=== PATIENT | male | born 1945 | race Caucasian/White ===

== ENCOUNTER 2020-01-25 17:34 | Emergency (ER) | payer MEDICARE, OTHER ==
[~2020-01-25] VITALS: Ht 185.4 cm; Wt 154.0 kg
[2020-01-25] MEDS ORDERED: NORVASC5 M1 PO (17:54)
[2020-01-25] MEDS ORDERED: CYMBALTA20 MG PO (17:54)
[2020-01-25] MEDS ORDERED: TENORMIN100 MG PO (17:54)
[2020-01-25] MEDS ORDERED: LORATADINE10 M1 PO (17:55)
[2020-01-25] MEDS ORDERED: COZAAR25 MG PO (17:55)
[2020-01-25 18:26] LABS: HEMATOCRIT 42.2 % (39.0-50.0); HEMOGLOBIN 12.8 g/dl (14.0-18.0); IMMATURE GRANULOCYTES 0.5 % (0.0-5.0); MEAN CELL VOLUME 90.4 fL CALC (80.0-100.0); MEAN CORPUSCULAR HGB 27.4 pG CALC (26.0-32.0); MEAN CORPUSCULAR HGB CONC 30.3 g/dL CAL (32.0-36.0); NEUT# 4.49 thou/uL (1.82-7.42); RED BLOOD COUNT 4.67 mill/uL (4.70-6.10); RED CELL DISTRI WIDTH 14.9 % (11.5-15.5)
[2020-01-25 18:45] LABS: ALBUMIN 3.4 g/dL (3.2-5.0); ALKALINE PHOSPHATASE 81 u/l (38-126); ANION GAP 10 (6-22 (CALC)); BUN 16 mg/dL (8-23); BUN/CREATININE RATIO 15 (12-20 (CALC)); CARBON DIOXIDE 29 mmol/l (22-30); CHLORIDE 101 mmol/l (95-108); GFR > 60 ML/MIN (>=60 (CALC)); GFR FOR AFR.AMER. > 60 ML/MIN (>=60 (CALC)); POTASSIUM 4.1 mmol/l (3.5-5.1); SGOT/AST 18 u/l (19-48); SODIUM 136 mmol/l (137-146); TOTAL PROTEIN 6.9 g/dL (6.3-8.2)
[2020-01-25 18:48] LABS: BILIRUBIN, TOTAL 0.4 mg/dL (0.0-1.4)
[2020-01-25 19:45] VITALS: BP 155/68
== END 2020-01-25 19:45 | disposition left against medical advice (07) ==
LOC: ED 17:34 → ED-I 18:35 → ED 19:45
PROVIDERS: Family Medicine
DX: L03.115 Cellulitis of right lower limb (principal); L97.219 Non-pressure chronic ulcer of right calf with unspecified severity; I10 Essential (primary) hypertension; Z91.19 Patient's noncompliance with other medical treatment and regimen; L97.212 Non-pressure chronic ulcer of right calf with fat layer exposed; I87.311 Chronic venous hypertension (idiopathic) with ulcer of right lower extremity; A49.9 Bacterial infection, unspecified; E66.9 Obesity, unspecified; A41.50 Gram-negative sepsis, unspecified

== ENCOUNTER 2020-04-05 08:51 | Emergency (ER) | payer MEDICARE, OTHER ==
[~2020-04-05] VITALS: Ht 188 cm; Wt 156.0 kg
[~2020-04-05 08:51] MED LIST: COZAAR25 MG PO; CYMBALTA20 MG PO; LORATADINE10 M1 PO; NORVASC5 M1 PO; TENORMIN100 MG PO
[2020-04-05] MEDS ORDERED: PROBIOTI2 PO (09:08)
[2020-04-05] MEDS ORDERED: BACTRIM DS1 TAB PO ×2 (09:08→10:50)
[2020-04-05] MEDS ORDERED: HYDROCHLOROTH12.5 MG PO (09:08)
[2020-04-05] MEDS ORDERED: CYMBALTA20 MG PO (09:09)
[2020-04-05] MEDS ORDERED: COZAAR50 MG PO (09:10)
[2020-04-05 10:09] LABS: HEMATOCRIT 36.5 % (39.0-50.0); HEMOGLOBIN 11.7 g/dl (14.0-18.0); IMMATURE GRANULOCYTES 0.8 % (0.0-5.0); MEAN CELL VOLUME 86.5 fL CALC (80.0-100.0); MEAN CORPUSCULAR HGB 27.7 pG CALC (26.0-32.0); MEAN CORPUSCULAR HGB CONC 32.1 g/dL CAL (32.0-36.0); NEUT# 14.58 thou/uL (1.82-7.42); RED BLOOD COUNT 4.22 mill/uL (4.70-6.10); RED CELL DISTRI WIDTH 16.2 % (11.5-15.5)
[2020-04-05 10:47] LABS: ANION GAP 11 (6-22 (CALC)); BUN 18 mg/dL (8-23); BUN/CREATININE RATIO 15 (12-20 (CALC)); CARBON DIOXIDE 27 mmol/l (22-30); CHLORIDE 98 mmol/l (95-108); CREATININE 1.2 mg/dL (0.7-1.3); GFR 59 ML/MIN (>=60 (CALC)); GFR FOR AFR.AMER. > 60 ML/MIN (>=60 (CALC)); POTASSIUM 3.7 mmol/l (3.5-5.1); SODIUM 132 mmol/l (137-146)
[2020-04-05] MEDS ORDERED: OMNI-PAC300 MG PO (10:50)
[2020-04-05 10:57] VITALS: BP 108/55
== END 2020-04-05 11:09 | disposition left against medical advice (07) ==
LOC: ED 08:51
PROVIDERS: Family Medicine
DX: L03.116 Cellulitis of left lower limb (principal); I10 Essential (primary) hypertension; Z86.718 Personal history of other venous thrombosis and embolism; Z95.828 Presence of other vascular implants and grafts; Z91.19 Patient's noncompliance with other medical treatment and regimen

== ENCOUNTER 2020-04-10 14:22 | Inpatient (IN) | payer MEDICARE, OTHER ==
[~2020-04-10] VITALS: Ht 188 cm; Wt 177.4 kg
[~2020-04-10 14:22] MED LIST changes: +BACTRIM DS1 TAB PO; +COZAAR50 MG PO; +HYDROCHLOROTH12.5 MG PO; +OMNI-PAC300 MG PO; +PROBIOTI2 PO
--- NOTE | 2020-04-10 14:43 | NUR ---
PT TO ER ROOM 8 VIA MOTORIZED SCOOTER WITH . BEDSIDE TRAIGE COMPLETED.
--- NOTE | 2020-04-10 15:15 | NUR ---
PT REPORTS BEING SENT OVER FROM WOUND CARE IN [place] TO LEFT LEG CELLULITIS THAT HAS NOT IMPROVED SINCE BEING PLACED ON ABX. IV ACCESS INITATED AND 1ST SET OF BLOOD CX DRAWN. PLAN OF CARE DISCUSSED. VERBALIZED UNDERSTANDING. PT REFUSED TO LAY IN STRETCHER REPORTS BEING MORE COMFORTABLE BEING IN HIS PERSONAL MOBILIZED WC.
[2020-04-10 15:53] LABS: HEMOGLOBIN 13.4 g/dl (14.0-18.0); IMMATURE GRANULOCYTES 3.9 % (0.0-5.0); MEAN CELL VOLUME 87.5 fL CALC (80.0-100.0); MEAN CORPUSCULAR HGB 27.4 pG CALC (26.0-32.0); MEAN CORPUSCULAR HGB CONC 31.3 g/dL CAL (32.0-36.0); NEUT# 8.05 thou/uL (1.82-7.42); RED BLOOD COUNT 4.89 mill/uL (4.70-6.10); RED CELL DISTRI WIDTH 16.5 % (11.5-15.5)
[2020-04-10 15:55] LABS: HEMATOCRIT 42.8 % (39.0-50.0)
[2020-04-10] MEDS ORDERED: TYLENOL325 M2 PO (16:05)
[2020-04-10 16:07] LABS: ALBUMIN 3.6 g/dL (3.2-5.0); ALKALINE PHOSPHATASE 136 u/l (38-126); ANION GAP 13 (6-22 (CALC)); BILIRUBIN, TOTAL 0.5 mg/dL (0.0-1.4); BUN 15 mg/dL (8-23); BUN/CREATININE RATIO 12 (12-20 (CALC)); CARBON DIOXIDE 25 mmol/l (22-30); CHLORIDE 101 mmol/l (95-108); CREATININE 1.2 mg/dL (0.7-1.3); GFR 59 ML/MIN (>=60 (CALC)); GFR FOR AFR.AMER. > 60 ML/MIN (>=60 (CALC)); POTASSIUM 3.8 mmol/l (3.5-5.1); SGOT/AST 41 u/l (19-48); SODIUM 135 mmol/l (137-146); TOTAL PROTEIN 8.5 g/dL (6.3-8.2)
--- NOTE | 2020-04-10 16:21 | NUR ---
PT RETURN FROM RADILOGY AND INFORED OF WAIT TIME FOR RESULTS. VERBALIZED UNDERSTANDING. CALL LIGHT GIVEN.
--- NOTE | 2020-04-10 16:45 | NUR ---
IV VANCOMYCIN INTIATED. INFUSING WITHOUT DIFFICLTY. WAIT TIME DISCUSSED WITH PT. VEARBLIZED UNDERSTANDING. DENIES ANY NEEDS. CALL LIGHT WITHIN REACH
--- NOTE | 2020-04-10 17:40 | NUR ---
PT SITTING IN MOBILIZED CHAIR ON PHONE. IV VANCO INFUSING WITOUT DIFFICULTY. VERBALIZES NO NEEDS AT THIS TIME. CALL LIGHT WITHIN REACH.
--- NOTE | 2020-04-10 18:34 | NUR ---
REPORT GIVEN TO BILL DAVENPORT
--- NOTE | 2020-04-10 18:40 | NUR ---
Admission Note Report Given to: BILL DAVENPORT Transported by: X Wheelchair Stretcher Transported with: X Nurse Transporter X Patent IV O2 Watershed Engineer Location: ICU X MS2 PT TO ROOM # 273
[2020-04-10 18:49] VITALS: BP 135/66
--- NOTE | 2020-04-10 18:49 | NUR ---
PT ARRIVED TO THE FLOOR VIA GYPSY CHAIR. PT WISHES TO REMAIN IN GYPSY CHAIR AT THIS TIME. VS OBTAINED. PT ORIETNED TO ROOM AND CALL YAO SYSTEM. SAFETY PRECAUTIONS IN PLACE. WILL CONTINUR TO MONITOR.
--- NOTE | 2020-04-10 20:03 | NUR ---
PHYSICAL ASSESMENT COMPLETE. PT CURRENTLY DENIES PAIN OR DISCOMFORT. SCHEDULED MEDICATIONS AND PRN MEDICATION ADMINISTERED, SEE E-MAR. PT DENIES ANY NEEDS AT THIS TIME. PLAN OF CARE REVIEWED, PT DENIES QUESTIONS, VERBALIZES UNDERSTANDING. ITEMS WITHIN REACH, PT PLACED IN LAZY BOY CHAIR PER HIS REQUEST. CALL YAO WITHIN REACH. AGREES TO CALL PRN.
--- NOTE | 2020-04-11 00:01 | NUR ---
PT LAYING IN RECLINER CHAIR WITH EYES CLOSED, APPEARS TO BE SLEEPING, APPEARS COMFORTABLE AND IN NO DISTRESS. RESPIRATIONS REGULAR AND UNLABORED. ITEMS REMAIN WITHIN REACH, CALL YAO REMAINS WITHIN REACH. BED REMAINS LOCKED AND IN LOW POSITION WITH BEDRAILS UP X2. WILL CONTINUE TO MONITOR.
[2020-04-11 04:00] VITALS: BP 124/73
--- NOTE | 2020-04-11 04:16 | NUR ---
PT RESTING IN BED, NO SIGNS OF DISTRESS NOTED, RESP EVEN AND UNLABORED. PT VOICES NO NEEDS OR COMPLAINTS AT THIS TIME. CALL LIGHT IN REACH, CONTINUE TO MONITOR.
--- NOTE | 2020-04-11 04:20 | NUR ---
PT RESTING IN RECLINER, NO SIGNS OF DISTRESS NOTED, RESP EVEN AND UNLABORED. PT VOICES NO NEEDS OR COMPLAINTS AT THIS TIME. CALL LIGHT IN REACH,CONTINUE TO MONITOR.
[2020-04-11 05:57] LABS: HEMATOCRIT 40.3 % (39.0-50.0); HEMOGLOBIN 12.7 g/dl (14.0-18.0); IMMATURE GRANULOCYTES 3.6 % (0.0-5.0); MEAN CELL VOLUME 87.4 fL CALC (80.0-100.0); MEAN CORPUSCULAR HGB 27.5 pG CALC (26.0-32.0); MEAN CORPUSCULAR HGB CONC 31.5 g/dL CAL (32.0-36.0); NEUT# 7.23 thou/uL (1.82-7.42); RED BLOOD COUNT 4.61 mill/uL (4.70-6.10); RED CELL DISTRI WIDTH 16.7 % (11.5-15.5)
[2020-04-11 06:21] LABS: ANION GAP 15 (6-22 (CALC)); BUN 16 mg/dL (8-23); BUN/CREATININE RATIO 14 (12-20 (CALC)); CARBON DIOXIDE 25 mmol/l (22-30); CHLORIDE 102 mmol/l (95-108); CREATININE 1.1 mg/dL (0.7-1.3); GFR > 60 ML/MIN (>=60 (CALC)); GFR FOR AFR.AMER. > 60 ML/MIN (>=60 (CALC)); POTASSIUM 4.4 mmol/l (3.5-5.1); SODIUM 136 mmol/l (137-146)
[2020-04-11 07:35] VITALS: BP 125/73
--- NOTE | 2020-04-11 07:35 | NUR ---
ASSESSMENT IS COMPLTED: IV SITE IS FREE FRM REDNESS OR EDEMA. HR IS REG,PULSES ARE STRONG ON RADIAL, STRONG ON R AND WEAK ON LEFT, ABD IS SOFT WITH ACTIVE BS, BREATH SOUNDS ARE CLEAR, BILATERALLY, HAS +3 EDEMA NOTD ON LEFT LEG. WITH SOME WEEPING NOTED.
--- NOTE | 2020-04-11 10:01 | NUR ---
SPOKE WITH PT ABOUT HOME MEDICATION WILL HAVE SOME ONE BRING IN
--- NOTE | 2020-04-11 12:00 | NUR ---
PTI S RELAXING IN BED WITH NO DISTRESS NOTED. IV SITE IS FREE FROM REDNESS OR EDEMA. CONTINUE TO OSBERVE AND MONITOR.
[2020-04-11 15:24] VITALS: BP 135/68
--- NOTE | 2020-04-11 16:00 | NUR ---
PT REMAINS LAYING IN THE BED. STATED" THE RECLYNER IS NOT COMFORTABLE" IV SITE IS FREE FROM REDNESS OR EDEMA . CONTINUE TO OSBERVE AND MONITOR.
[2020-04-11 19:00] VITALS: BP 130/71
--- NOTE | 2020-04-11 20:20 | NUR ---
PT RESTING IN BED, NO SIGNS OF DISTRESS NOTED, RESP EVEN AND UNLABORED. PT ALERT AND ORIENTED X3, POWER WHEELCHAIR AT BEDSIDE, NOTED +4 PITTING EDEMA TO BLE NOTED RLE DRESSING INTACT, LLE OPEN REDDENED, SWOLLEN, HOT TO TOUCH, NOTED SCALING/SCABS TO L INNER THIGH. DISCUSSED POC, ASSESSMENT COMPLETED, CALL LIGHT IN REACH,CONTINUE TO MONITOR.
--- NOTE | 2020-04-12 | NUR ---
PT RESTING IN BED, IV ANTIBITIC INFUSING, PT VOICES NO NEEDS OR COMPLAINTS AT THIS TIME, CALL LIGHT IN REACH,CONTINUE TO MONITOR.
[2020-04-12 04:00] VITALS: BP 131/68
--- NOTE | 2020-04-12 04:00 | NUR ---
PT WATCHING TV, NO SIGNS OF DISTRESS NOTED, RESP EVEN AND UNLABORED. CALL LIGHT IN REACH,CONTINUE TO MONITOR.
--- NOTE | 2020-04-12 05:29 | NUR ---
PT RESTING IN BED C/O PAIN , MEDICATED WITH TYLENOL. RESP EVEN AND UNLABORED. CALL LIGHT IN REACH,CONTINUE TO MONITOR.
[2020-04-12 05:37] LABS: HEMATOCRIT 35.8 % (39.0-50.0); MEAN CELL VOLUME 87.5 fL CALC (80.0-100.0); MEAN CORPUSCULAR HGB 26.9 pG CALC (26.0-32.0); MEAN CORPUSCULAR HGB CONC 30.7 g/dL CAL (32.0-36.0); RED BLOOD COUNT 4.09 mill/uL (4.70-6.10); RED CELL DISTRI WIDTH 16.5 % (11.5-15.5)
[2020-04-12 06:08] LABS: ANION GAP 9 (6-22 (CALC)); BUN 14 mg/dL (8-23); BUN/CREATININE RATIO 13 (12-20 (CALC)); CARBON DIOXIDE 28 mmol/l (22-30); CHLORIDE 104 mmol/l (95-108); CREATININE 1.1 mg/dL (0.7-1.3); GFR > 60 ML/MIN (>=60 (CALC)); GFR FOR AFR.AMER. > 60 ML/MIN (>=60 (CALC)); MAGNESIUM 2.1 mg/dL (1.6-2.3); POTASSIUM 4.3 mmol/l (3.5-5.1); SODIUM 137 mmol/l (137-146)
[2020-04-12 07:20] VITALS: BP 135/62
--- NOTE | 2020-04-12 07:20 | NUR ---
PT SITTING IN BED. A&O X3. NO DISTRESS NOTED. DRESSING TO RLE CDI. REDNESS AND WARMTH FELT TO LEFT EXTREMITY, NO EXUDATE NOTED AT THIS TIME. PITTING EDEMA TO BLE. 400 CC OF CLEAR YELLOW URINE NOTED UPON EMPTYING URINAL. PT DENIES ANY PAIN BUT STATES HE GETS "DISCOMFORT" FROM TIME TO TIME. NO OTHER NEEDS AT THIS TIME. ASSESSMENT COMPLETED. DISCUSSED POC. CALL LIGHT IN REACH. CONTINUE TO MONITOR.
--- NOTE | 2020-04-12 11:53 | NUR ---
PT SITTING IN BED. NO NEEDS AT THIS TIME. CALL LIGHT IN REACH. CONTINUE TO MONITOR.
--- NOTE | 2020-04-12 14:54 | NUR ---
DR ANDINO CONSULT IN PROGRESS
[2020-04-12 15:23] VITALS: BP 122/69
--- NOTE | 2020-04-12 18:06 | NUR ---
CLEOCIN AND VANCOMYCIN INITIATED, PER EMAR AND PHARMACY NOTE Y SITE COMPATIBLE WITH EACH OTHER. FIRST TIME DOSE EDUCATION GIVEN, PT INSTRUCTED TO CALL IF S/S OF A REACTION. PT VERABLIZED UNDERSTANDING. NO OTHER NEEDS AT THIS TIME. CALL LIGHT IN REACH. CONTINUE TO MONITOR.
[2020-04-12 19:00] VITALS: BP 130/65
--- NOTE | 2020-04-12 20:44 | NUR ---
PT C/O SOB. ADUDIBLE WHEEZES NOTED. ELEVATED HOB. ENCOURAGED DEEP BREATHING EXERCISES. CURRENT O2 SAT 92% RA. IV FLUIDS DECREASED TO 10ML/HR. PT DENIES ANY LUNG HISTORY. CP, OR CHF. DIRECTOR EXPERIMENTAL MEDICINE WATER FILTRATION TECHNICIAN NOTIFIED AT THIS TIME. WILL CONTINUE TO MONITOR. VSS.
--- NOTE | 2020-04-12 22:16 | NUR ---
PHONE CALL FROM PT SIGNIFICANT OTHER WANTING UPDATES. NO CODE PROVIDED BY CALLER. PHONE CALL TRANSFERRED INTO ROOM FOR PT TO PROVIDED CALLER WITH CODE. CODE PROVIDED TO PT BY NEWSPAPER OR PERIODICAL EDITOR AT THIS TIME.
--- NOTE | 2020-04-12 22:18 | NUR ---
ORDERS RECEIVED FOR CXR AND VENTOLIN INHALER. NOTIFIED PT AT THIS TIME. PT REFUSED INHALER AND EDUCATION. PT STATES " I DO NOT WANT THE INHALER IT WON'T WORK FOR ME, I JUST NEED OXYGEN". CURRENT O2 SAT 96% ON RA. PT STATES HIS NEEDS ARE NOT BEING MET AND STATES HE WILL SPEAK WITH ADMINISTRATION IN AM. PT DENIES ANY OTHER WANTS OR NEEDS AT THIS TIME. WILL NOTIFY SETTER OUT HONING MACHINE SET UP OPERATOR.
--- NOTE | 2020-04-12 22:30 | NUR ---
PT REQUEST APAP FOR CHEST DISCOMFORT. PT STATES IT IS NOT PAIN JUST DISCOMFORT. DENIES ANY FLUTTERING AND DOES NOT RADIATE. PT STATES HAS BEEN HAVING CHEST DISCOMFORT FOR 2 DAYS. JD EDWARDS NOTIFIED. EKG OBTAINED. PT PLACED ON 02 2L/M VIA NC. WILL CONTINUE TO MONITOR.
--- NOTE | 2020-04-12 22:54 | NUR ---
PT UPDATED SIGNIFICANT OTHER ON PT PLACE OF CARE AT THIS TIME.
--- NOTE | 2020-04-12 22:54 | NUR ---
ERECTING CRANE OPERATOR UPDATED SIGNIFICANT OTHER VIA TELEPHONE ON PT PLAN OF CARE AT THIS TIME.
--- NOTE | 2020-04-12 23:25 | NUR ---
PT RESTING IN BED. NO APPARENT DISTRESS NOTED. RESPIRATIONS EVEN AND UNLABORED. PT CONTINUE TO REFUSED ORDERED INHALER. O2 @ 2L/M VIA NC. PT STATES CHEST DISCOMFORT RESOLVED. NO OTHER CURRENT WANTS OR NEEDS. CALL LIGHT WITHIN REACH. WILL CONTINUE TO MONITOR.
--- NOTE | 2020-04-13 02:09 | NUR ---
PT RESTING IN BED WITH EYES CLOSED. O2 TUBING NOT IN NOSE AT THIS TIME. NO APPARENT DISTRESS NOTED. RESPIRATIONS EVEN AND UNLABORED. PT DENIES ANY SOB. PT STATES HE FEELS MUCH BETTER. IV ABT INITIATED. IV SITE APPEARS HEALTHY. PT DENIES ANY CURRENT WANTS OR NEEDS. CALL LIGHT WITHIN REACH. WILL CONTINUE TO MONITOR.
--- NOTE | 2020-04-13 03:36 | NUR ---
FRESH ICE WATER PROVIDED. IV ABT CONTINUE TO INFUSE, PT TOLERATING WELL. NO OTHER CURRENT WANTS OR NEEDS. CALL LIGHT WITHIN REACH. WILL CONTINUE TO MONITOR.
[2020-04-13 04:00] VITALS: BP 151/75
--- NOTE | 2020-04-13 07:01 | NUR ---
REPORT RECEIVED FROM OSCAR RODRIGUEZ. PT RESTING IN BED, NO S/S OF DISTRESS AT THIS TIME. SAFETY PRECAUTIONS IN PLACE. WILL CONTINUE TO MONITOR.
--- NOTE | 2020-04-13 08:18 | NUR ---
AND ALEXEI GUZMAN AT BEDSIDE, DISCUSSING PLAN OF CARE.
--- NOTE | 2020-04-13 09:34 | NUR ---
S: SON SALDANA is a 74 M who presents with <left leg pain>. He has a history of <hypertension and stasis ulcer righ leg>. All medications in patient's chart were reviewed. O: VS: BP <151/75 mm Hg>, P<71 beats/min>, RR<22 breaths/min>,T<96.6 F> W <155 kg>, HT<188 cm>, Scr=<1.1>,CrCl= <94.2 ml/min> A: Blood culture shows which no growth. P: Patient is on <cilndamycin 900mg q8h>. Vancomycin ordered for pharmacy to dose. Start Vancomycin <1000 mg> IV Q<8>H. Vancomycin trough is drawn before the 4th dose on <04/13/2020 @ 17:30>. Vancomycin goal trough is between <10-20 mcg/ml>. Pharmacy will follow and or advise on antibiotics use as needed.
--- NOTE | 2020-04-13 09:50 | NUR ---
PT RESTING IN BED. RESPIRATIONS ARE EVEN AND UNLABORED ON RA. LUNGS SOUND DIMINISHED. PEDAL PULSES ARE WEAK. PT DENIES ANY PAIN OR DISCOMFORT AT THIS TIME. PT STATES "I WANT TO LIMIT THE AMOUNT OF COMING AND GOING IN MY ROOM TODAY, DIETARY COMES IN ALL ROSITA NILLY AND SMELLS LIKE REAFER THEY COULD HAVE DONE A BETTER JOB COVERING IT UP, I DON'T WANT TO MAKE A FORMAL COMPLAINT I JUST WANT TO LIMIT HOW MANY TIMES STAFF IS COMING INTO MY ROOM WHILE I'M ADJUSTING TO BEING HERE" SAFETY PRECAUTIONS IN PLACE. WILL CONTINUE TO MONITOR.
[2020-04-13 09:56] VITALS: BP 135/77
--- NOTE | 2020-04-13 10:20 | NUR ---
RISK MANAGEMENT CAME TO SEE PT PER PT REQUEST, FOOD SERVICES COORDINATOR WENT IN TO ASK PT IF HE WAS OKAY WITH RISK MANAGEMENT COMING IN TO TALK WITH HIM PER HIS REQUEST TO LIMIT VISITORS. PT REFUSED TO TALK WITH RISK MANAGEMENT AT THIS TIME. SAFETY PRECAUTIONS IN PLACE. WILL CONTINUE TO MONITOR.
--- NOTE | 2020-04-13 13:30 | NUR ---
WOUND CARE AT BEDSIDE TO CHANGE DRESSING TO RIGHT FOOT, PT TOLERATED DRESSING CHANGE WELL. PT SHORT OF BREATH ANRP CARTEE NOTIFIED, NEW ORDERS OBTAINED AND TO BE CARRIED OUT. PT ASSISTED INTO GYPSY CHAIR, LINENS CHANGED, PT BREATHING EASIER SITTING UP. SAFETY PRECAUTIONS IN PLACE. WILL CONTINUE TO MONITOR.
[2020-04-13 15:05] VITALS: BP 152/79
--- NOTE | 2020-04-13 16:05 | NUR ---
PT RESTING IN GYPSY CHAIR AT BEDSIDE, RESPIRATIONS ARE EVEN AND UNLABORED ON O2. NO S/S OF DISTRESS AT THIS TIME. SAFETY PRECAUTIONS IN PLACE. WILL CONTINUE TO MONITOR.
--- NOTE | 2020-04-13 19:02 | NUR ---
REPORT FROM ISSAC KHAN. ASSUME PT CARE AT THIS TIME.
[2020-04-13 20:00] VITALS: BP 127/64
--- NOTE | 2020-04-13 20:38 | NUR ---
PT MEDICATED ORDERED. ASSESSMENT COMPLETE. PT REMAINS ALERT AND ORIENTED. 02 3L/M VIA NC. ENCOURAGED PT TO KEEP HOB ELEVATED TO ASSIST WITH SOB AND WHEEZING. PT REFUSED. PT DENIES ANY CURRENT WANTS OR NEEDS. DISCUSSED POC. PT VERBALIZED UNDERSTANDING. IV SITE APPEARS HEALTHY. CALL LIGHT WITHIN REACH. WILL CONTINUE TO MONITOR.
--- NOTE | 2020-04-14 00:50 | NUR ---
PT MEDICATED FOR LEG PAIN WITH APAP. EXTRA BLANKETS PROVIDED. URINAL EMPTIED. PT DENIES ANY OTHER CURRENT WANTS OR NEEDS. NO APPARENT DISTRESS NOTED. [address] CALL LIGHT WITHIN REACH. WILL CONTINUE TO MONITOR.
[2020-04-14 04:00] VITALS: BP 136/68
--- NOTE | 2020-04-14 04:24 | NUR ---
PT RESTING IN BED WITH EYES CLOSED. NO APPARENT DISTRESS NOTED. RESPIRATIONS EVEN AND UNLABORED.CALL LIGHT WITHIN REACH. WILL CONTINUE TO MONITOR.
[2020-04-14 05:03] LABS: HEMATOCRIT 34.4 % (39.0-50.0); HEMOGLOBIN 10.7 g/dl (14.0-18.0); IMMATURE GRANULOCYTES 1.4 % (0.0-5.0); MEAN CELL VOLUME 87.5 fL CALC (80.0-100.0); MEAN CORPUSCULAR HGB 27.2 pG CALC (26.0-32.0); MEAN CORPUSCULAR HGB CONC 31.1 g/dL CAL (32.0-36.0); NEUT# 5.84 thou/uL (1.82-7.42); RED BLOOD COUNT 3.93 mill/uL (4.70-6.10); RED CELL DISTRI WIDTH 16.3 % (11.5-15.5)
[2020-04-14 05:11] LABS: ALBUMIN 2.9 g/dL (3.2-5.0); ALKALINE PHOSPHATASE 98 u/l (38-126); ANION GAP 10 (6-22 (CALC)); BUN 12 mg/dL (8-23); BUN/CREATININE RATIO 13 (12-20 (CALC)); CARBON DIOXIDE 32 mmol/l (22-30); CHLORIDE 100 mmol/l (95-108); GFR > 60 ML/MIN (>=60 (CALC)); GFR FOR AFR.AMER. > 60 ML/MIN (>=60 (CALC)); POTASSIUM 4.5 mmol/l (3.5-5.1); SGOT/AST 25 u/l (19-48); SODIUM 137 mmol/l (137-146); TOTAL PROTEIN 7.2 g/dL (6.3-8.2)
[2020-04-14 05:16] LABS: BILIRUBIN, TOTAL 0.8 mg/dL (0.0-1.4)
--- NOTE | 2020-04-14 06:58 | NUR ---
REPORT RECEIVED FROM OSCAR RODRIGUEZ. PT RESTING IN BED FREE FROM DISTRESS AT THIS TIME. SAFETY PRECAUTIONS IN PLACE. WILL CONTINUE TO MONITOR.
--- NOTE | 2020-04-14 10:15 | NUR ---
PT SITTING IN GYPSY CHAIR. ALERT AND ORIENTED. RESPIRATIONS ARE EVEN AND UNLABORED ON RA. LUNGS SOUND CLEAR/DIMINISHED. PEDAL PULSES ARE WEAK. PT DENIES ANY PAIN OR DISCOMFORT AT THIS TIME. PLAN OF CARE DISCUSSED WITH PT. PT STATES "I'M LEAVING TODAY, I'M NOT GOING TO BE STAYING. I'LL GET MY ANTIBIOTICS THIS MORNING BUT I AM LEAVING." DR LAAMO AT BEDSIDE, DISCUSSING PLAN OF CARE, PT TO BE D/C. SAFETY PRECAUTIONS IN PLACE. WILL CONTINUE TO MONITOR.
[2020-04-14 10:20] VITALS: BP 135/74
[2020-04-14 10:21] VITALS: BP 135/74
[2020-04-14] MEDS ORDERED: KEFLEX500 M1 PO (12:31)
[2020-04-14] MEDS ORDERED: LEVAQUIN750 M1 PO (12:32)
--- NOTE | 2020-04-14 13:20 | NUR ---
PT RESTING IN GYPSY CHAIR, PT PROVIDED WITH DISCHARGE PACKET, PT DENIES ANY QUESTIONS OR CONCERNS AT THIS TIME. IV #22 RFA REMOVED, CATHETER INTACT.
--- NOTE | 2020-04-14 13:30 | NUR ---
Discharge instructions given. Patient verbalizes understanding of same. Discharged in stable condition via Wheelchair to Home with family. All belongings sent with pt.
== END 2020-04-14 13:30 | disposition home or self-care (01) | DRG 603 ==
LOC: ED 14:22 → ED-I 17:29 → ED 17:38 → MS2 17:39
PROVIDERS: Nurse Practitioner; Student in an Organized Health Care Education/Training Program; ADMIT Internal Medicine; ATTEND Internal Medicine
DX: L03.116 Cellulitis of left lower limb (principal); L97.919 Non-pressure chronic ulcer of unspecified part of right lower leg with unspecified severity; Z68.41 Body mass index [BMI] 40.0-44.9, adult; I87.311 Chronic venous hypertension (idiopathic) with ulcer of right lower extremity; I10 Essential (primary) hypertension; E66.01 Morbid (severe) obesity due to excess calories; L03.115 Cellulitis of right lower limb; R06.02 Shortness of breath; B35.1 Tinea unguium; B96.5 Pseudomonas (aeruginosa) (mallei) (pseudomallei) as the cause of diseases classified elsewhere; Z86.14 Personal history of Methicillin resistant Staphylococcus aureus infection; Z95.828 Presence of other vascular implants and grafts; Z20.828 Contact with and (suspected) exposure to other viral communicable diseases
CPT/HCPCS: A6198; A6454; J1650; Q3014

== ENCOUNTER 2020-09-24 11:36 | Inpatient (IN) | payer MEDICARE, OTHER ==
[~2020-09-24] VITALS: Ht 188 cm; Wt 173.0 kg
[~2020-09-24 11:36] MED LIST changes: +KEFLEX500 M1 PO; +LEVAQUIN750 M1 PO; +TYLENOL325 M2 PO
--- NOTE | 2020-09-24 11:46 | NUR ---
PT TO ROOM 13 VIA WHEELCHAIR WITH FOR BEDSIDE TRIAGE.
[2020-09-24 12:59] LABS: HEMATOCRIT 38.8 % (39.0-50.0); HEMOGLOBIN 12.3 g/dl (14.0-18.0); IMMATURE GRANULOCYTES 4.4 % (0.0-5.0); MEAN CELL VOLUME 83.6 fL CALC (80.0-100.0); MEAN CORPUSCULAR HGB 26.5 pG CALC (26.0-32.0); MEAN CORPUSCULAR HGB CONC 31.7 g/dL CAL (32.0-36.0); NEUT# 12.06 thou/uL (1.82-7.42); RED BLOOD COUNT 4.64 mill/uL (4.70-6.10); RED CELL DISTRI WIDTH 16.6 % (11.5-15.5)
[2020-09-24 13:21] LABS: ALKALINE PHOSPHATASE 112 u/l (38-126); ANION GAP 14 (6-22 (CALC)); BILIRUBIN, TOTAL 0.6 mg/dL (0.0-1.4); CARBON DIOXIDE 25 mmol/l (22-30); CHLORIDE 93 mmol/l (95-108); CREATININE 1.9 mg/dL (0.7-1.3); GFR 35 ML/MIN (>=60 (CALC)); GFR FOR AFR.AMER. 42 ML/MIN (>=60 (CALC)); SGOT/AST 38 u/l (19-48); TOTAL PROTEIN 6.9 g/dL (6.3-8.2)
[2020-09-24 13:26] LABS: BUN 44 mg/dL (8-23); BUN/CREATININE RATIO 23 (12-20 (CALC)); SODIUM 128 mmol/l (137-146)
[2020-09-24 14:18] LABS: URINE BILIRUBIN - DIPSTICK NEGATIVE (NEGATIVE); URINE BLOOD DIPSTICK SMALL (NEGATIVE); URINE COLOR YELLOW; URINE GLUCOSE - DIPSTICK NEGATIVE (NEGATIVE); URINE KETONE NEGATIVE (NEGATIVE); URINE LEUK ESTERASE NEGATIVE (NEGATIVE); URINE NITRITE - DIPSTICK NEGATIVE (Negative); URINE PH 5.5 (4.5-8.0); URINE PROTEIN - DIPSTICK NEGATIVE (NEG-TRACE); URINE UROBILINOGEN - DIPSTICK 0.2 E.U./dL (0.2)
[2020-09-24 14:25] LABS: URINE SQUAMOUS EPITHELIAL CELL FEW EPI/hpf (0-FEW)
--- NOTE | 2020-09-24 18:15 | NUR ---
REPORT CALLED TO HOLGER KHAN
[2020-09-24 18:23] VITALS: BP 140/71
--- NOTE | 2020-09-24 18:43 | NUR ---
PT RECEIVED TO ROOM 261 VIA STRETCHER FROM ER, ACCOMPANIED BY MASSIEL KHAN. PT IS OBESE, DIFFICULT TO MOVE HIMSELF, BUT HE DID SLOWLY PULL HIMSELF TO BED. PT ACCOMPANIED BY SIGNIFICANT OTHER. LEGS ARE BOTH REDDENED, LEFT FOOT SEEN WITH BLISTERING AND WEEPING AREAS. PAPER CHUX PLACED UNDER LEGS POSSIBLE. OXYGEN PLACED AT 3 LPM NC.
--- NOTE | 2020-09-24 20:00 | NUR ---
PATIENT RESTING IN BED AT THIS TIME-SHEETS OVER HIS HEAD. PATIENT RESPONDS TO SPEECH-AWAKE ALERT AND ORIENTEDX3. O2 VIA NASAL CANNULA IN PLACE AT 2LPM. PATIENT IS O2 DEPENDANT AND ALREADY HAS O2 AT HOME. SALINE LOCK TO RAC INTACT AND FLUSHES FREELY-IVF NS HUNGAND INFUSING AT 75CC/HR. TELE MONITOR IN PLACE AND LAST READING WAS [id number]. PATIENT WITH WOUNDS TO BLE-BOTH ARE SWOLLEN RED AND WEEPING-FOUL SMEELING. 4TH AND 5TH TOES ON LEFT FOOT ARE BLACK. PATIENT STATES THAT HE HAS BEEN SEEING WOUND CARE AND WAS REFERRED TO THE ER HERE TODAY. PICTURES TAKEN AND PLACED IN THE CHART. BOTH LE ARE ELEVATED ON PILLOWS WITH PADS UNDERNEATH THE LEGS. PATIENT STATES THAT HE LIVES ALONE AND GETS AROUND ON HIS ELECTRIC WHEELCHAIR-VERY LIMITED MOBILITY-PATIENT IS OBESE. PATIENT DECLINES ANY FOOD FOR DINNER AT THIS TIME. ONLY DRINKING WATER. VOIDING JOSE URINE IN URINAL. STATES THAT HIS LAST BM WAS YESTERDAY. PATIENT ORIENTED TO ROOM AND SURROUNDINGS. INSTRUCTED ON USE OF NURSE CALL LIGHT, TV REMOTE AND PHONE. SAFETY PRECAUTIONS REINFORCED. CALL LIGHT IN REACH. WILL CONT TO MONITOR.
[2020-09-25 00:04] VITALS: BP 100/51
--- NOTE | 2020-09-25 00:30 | NUR ---
PATIENT RESTING IN BED WITH O2 VIA NASAL CANNULA IN PLACE. EYES ARE CLOSED. RESPS ARE EVEN AND UNLABORED. TELE MONITOR IN PLACE-LAST READING WAS [id number]. IVF NS PATENT AND INFUSING VIA RAC SITE AT 75CC/HR. BLE ELEVATED ON PILLOWS. CALL LIGHT IN REACH. WILL CONT TO MONITOR.
--- NOTE | 2020-09-25 04:05 | NUR ---
PATIENT RESTING IN BED WITH O2 VIA NASAL CANNULA IN PLACE. EYES ARE CLOSED. RESPS ARE EVEN AND UNLABORED. TELE MONITOR IN PLACE. IVF NS PATENT AND INFUSING VIA RAC SITE AT 75CC/HR. SITE REMAINS HEALTHY. BLE ELEVATED ON PILLOWS. CALL LIGHT IN REACH. WILL CONT TO MONITOR.
[2020-09-25 04:17] VITALS: BP 109/61
[2020-09-25 06:44] LABS: HEMATOCRIT 34.4 % (39.0-50.0); IMMATURE GRANULOCYTES 2.2 % (0.0-5.0); MEAN CELL VOLUME 83.9 fL CALC (80.0-100.0); MEAN CORPUSCULAR HGB 26.8 pG CALC (26.0-32.0); NEUT# 9.28 thou/uL (1.82-7.42); RED BLOOD COUNT 4.1 mill/uL (4.70-6.10); RED CELL DISTRI WIDTH 16.4 % (11.5-15.5)
[2020-09-25 07:05] LABS: ALKALINE PHOSPHATASE 88 u/l (38-126); ANION GAP 11 (6-22 (CALC)); BILIRUBIN, TOTAL 0.7 mg/dL (0.0-1.4); BUN 32 mg/dL (8-23); BUN/CREATININE RATIO 26 (12-20 (CALC)); CARBON DIOXIDE 22 mmol/l (22-30); CHLORIDE 99 mmol/l (95-108); CREATININE 1.3 mg/dL (0.7-1.3); GFR 54 ML/MIN (>=60 (CALC)); GFR FOR AFR.AMER. > 60 ML/MIN (>=60 (CALC)); POTASSIUM 3.6 mmol/l (3.5-5.1); SGOT/AST 28 u/l (19-48); SODIUM 128 mmol/l (137-146); TOTAL PROTEIN 5.6 g/dL (6.3-8.2)
[2020-09-25 07:08] LABS: ALBUMIN 2.3 g/dL (3.2-5.0)
[2020-09-25 07:49] VITALS: BP 99/51
--- NOTE | 2020-09-25 07:49 | NUR ---
PT LAYING IN BED. A&O X4. NO DISTRESS NOTED. O2 VIA NC @3L IN PLACE, PT REPORTS TO BE HOME DEPENDENT. DENIES ANY PAIN AT THIS TIME. CLEAR/DIMINISHED BREATH SOUNDS HEARD UPON AUSCULTATION. ACTIVE BOWEL SOUNDS X4 QUADRANTS. EDEMA NOTED TO BLE, WITH REDNESS AND WARMTH FELT TO THE TOUCH. RT FOOT ULCER NOTED. WEEPING NOTED TO BLE. BLE ELEVATED ON PILLOWS. PT REPORTS TO BE FOLLOWING UP WITH WOUND CARE OUTPATIENT X1 YEAR. STATES HE LIVES ALONE AND IS ABLE TO DO ADLS ON HIS OWN. #20 RAC INFUSING IVF PER EMAR ORDERS. ASSESSMENT COMPLETED. PT EDUACATED ON CURRENT NPO STATUS, PT AGREEABLE. DISCUSSED POC. CALL LIGHT WITHIN REACH.
--- NOTE | 2020-09-25 08:20 | NUR ---
NICA BECKETT AT BEDSIDE APPLYING HUMIDIFICATION TO O2, PER PTS REQUEST.
--- NOTE | 2020-09-25 09:39 | NUR ---
PT EDUCATED ON ORDERED MRI TO R/O OSTEOMYELITIS. PT INFORMED OF THE NEED TO GET AN ACCURATE WEIGHT PRIOR TO BE TAKEN TO ORDERED MRI. PER PT "I CANNOT DO THE TRANSFER TODAY" PT ASKED FOR CLARIFICATION ON WHAT HE WAS MEANING, STATES "I DO NOT HAVE IT IN ME TODAY TO DO THE MRI". Navin GUZMAN APRN NOTIFIED. NO WEIGHT OBTAINED AT THIS TIME. PT ALSO EDUCATED ON NEW ORDERED DIET.
--- NOTE | 2020-09-25 09:48 | NUR ---
PER ROBEL IN JULITA, PT EXCEEDS WEIGHT LIMIT ON MRI MACHINE. D THOMAS FOY NOTIFIED
[2020-09-25 10:00] VITALS: BP 117/59
--- NOTE | 2020-09-25 11:18 | NUR ---
DR ALVAREZ AND Navin GUZMAN CHILD DEVELOPMENT CONSULTANT AT BEDSIDE DISCUSSING POC
--- NOTE | 2020-09-25 12:11 | NUR ---
DR BURNETT AT BEDSIDE DISCUSSING POC
--- NOTE | 2020-09-25 13:09 | NUR ---
CONSULT PLACED DR ANDINO BY Neeta VARGAS .
--- NOTE | 2020-09-25 13:25 | NUR ---
PT LAYING IN BED. NO NEEDS REPORTED AT THIS TIME. IV HEALTHY AND PATENT. AWAITING WOUND CARE CONSULT FOR PRESSURE DRESSINGS. CALL LIGHT WITHIN REACH.
--- NOTE | 2020-09-25 14:50 | NUR ---
DR MONTAÑO AT BEDSIDE FOR WOUND CARE CONSULT
[2020-09-25 14:58] VITALS: BP 102/50
--- NOTE | 2020-09-25 15:00 | NUR ---
PATIENT WAS ASKED TO CHECK PATIENT BOTTOM, AND PADS TO MAKE SURE PATIENT WASN'T WET , OR HAD A BOWEL MOVEMENT . PATIENT STATED HIS BED PAD WAS NOT WET, AND HE DIDN'T HAVE A BM , AND WAS OK. STAFF TOLD PATIENT IF HE CHANGES HIS MIND ABOUT STAFF CHECKING HIM TO LET STAFF KNOW. NURSE SCOTT WAS NOTIFIED.
--- NOTE | 2020-09-25 16:45 | NUR ---
DR ANDINO CONSULT IN PROGRESS. WOUND CULTURE TO BE OBTAINED.
--- NOTE | 2020-09-25 16:57 | NUR ---
WOUND CULTURES COLLECTED. LEGS CLEANSED AND DRESSED PER DR MONTAÑO'S ORDERS. PT TOLERATED WELL. CALL LIGHT WITHIN REACH.
--- NOTE | 2020-09-25 18:37 | NUR ---
TYLENOL GIVEN FOR GENERALIZED PAIN 5 OUT OF 10. NO OTHER NEEDS AT THIS TIME. CALL LIGHT WITHIN REACH.
[2020-09-25 19:00] VITALS: BP 120/54
--- NOTE | 2020-09-25 20:30 | NUR ---
PATIENT RESTING IN BED AT THIS TIME-AWAKE ALERT AND ORIENTEDX3. PATIENT WITH NO COMPLAINTS AT THIS TIME. IVF NS PATENT AND INFUSING VIA RAC SITE AT 75CC/HR. SITE IS HEALTHY AT THIS TIME. BLE ELEVATED ON PILLOW WITH DRESSING INTACT TO BLE SECURED WITH JE WRAPS. JUAN TOES ARE WARM TO TOUCH. VOIDING QS YELLOW U RINE IN URINAL AT BEDSIDE. SAFETY PRECAUTIONS REINFORCED. CALL LIGHT IN REACH. WILL CONT TO MONITOR.
--- NOTE | 2020-09-25 23:04 | NUR ---
PATIENT RESTING IN BED AT THIS TIME. MAXIPIME INFUSING VIA RAC SITE ORDERED. VOIDED 600CC OF YELLOW URINE IN URINAL. MEDICATED WITH SLEEP WITH SONATA 5MG PO. CALL LIGHT IN REACH. WILL CONT TO MONITOR.
--- NOTE | 2020-09-26 01:26 | NUR ---
PATIENT RESTING IN BED AT THIS TIME WITH O2 VIA NASAL CANNULA IN PLACE. EYES ARE CLOSED. RESPS ARE EVEN AND UNLABORED. IVF PATENT AND INFUSING VIA RAC SITE AT 75CC/HR. CALL LIGHT IN REACH. WILL CONT TO MONITOR.
--- NOTE | 2020-09-26 02:15 | NUR ---
PATIENT RESTING IN BED-AWAKE WITH NO COMPLAINTS. URINALS EMPTIED FOR 900CC OF YELLOW URINE. BLE ELEVATED ON PILLOWS WITH BLE DRESSINGS INTACT SECURED WITH JE WRAPS. SAFETY PRECAUTIONS REINFORCED. CALL LIGHT IN REACH. WILL CONT TO MONITOR.
[2020-09-26 04:00] VITALS: BP 149/64
--- NOTE | 2020-09-26 04:13 | NUR ---
PATIENT RESTING IN BED AT THIS TIME WITH O2 VIA NASAL CANNULA. IVF PATENT AND INFUSING VIA RAC SITE AT 75CC/HR. CONT TO VOID QS YELLOW IN URINAL. NO COMPLAINTS AT THIS TIME. CALL LIGHT IN REACH. WILL CONT TO MONITOR.
[2020-09-26 05:30] LABS: HEMATOCRIT 36.1 % (39.0-50.0); HEMOGLOBIN 11.1 g/dl (14.0-18.0); MEAN CELL VOLUME 85.3 fL CALC (80.0-100.0); MEAN CORPUSCULAR HGB 26.2 pG CALC (26.0-32.0); MEAN CORPUSCULAR HGB CONC 30.7 g/dL CAL (32.0-36.0); RED BLOOD COUNT 4.23 mill/uL (4.70-6.10); RED CELL DISTRI WIDTH 16.9 % (11.5-15.5)
[2020-09-26 05:46] LABS: ANION GAP 9 (6-22 (CALC)); BUN 23 mg/dL (8-23); BUN/CREATININE RATIO 20 (12-20 (CALC)); CARBON DIOXIDE 25 mmol/l (22-30); CHLORIDE 103 mmol/l (95-108); CREATININE 1.2 mg/dL (0.7-1.3); GFR 59 ML/MIN (>=60 (CALC)); GFR FOR AFR.AMER. > 60 ML/MIN (>=60 (CALC)); POTASSIUM 3.8 mmol/l (3.5-5.1); SODIUM 133 mmol/l (137-146)
[2020-09-26 07:47] VITALS: BP 136/57
--- NOTE | 2020-09-26 07:47 | NUR ---
PT LAYING IN BED. A&O X4. NO DISTRESS NOTED. O2 VIA NC @3L HUMIDIFIED IN PLACE. SHALLOW BREATHING NOTED. CLEAR/DIMINISHED BREATH SOUNDS HEARD UPON AUSCULTATION. ACTIVE BOWEL SOUNDS X4 QUADRANTS HEARD UPON AUSCULTATION. #20 RAC HEALTHY AND PATENT WITH IVF INFUSING PER EMAR ORDERS. DRESSINGS TO BLE CDI. BLE ELEVATED ON PILLOWS. PENDING WOUND CULTURES AT THIS TIME. 850 CC OF CLEAR YELLOW URINE NOTED. ASSESSMENT COMPLETED. DISCUSSED POC. CALL LIGHT WITHIN REACH.
--- NOTE | 2020-09-26 10:58 | NUR ---
DR ALVAREZ AND Navin GUZMAN BARREL SCRAPER AT BEDSIDE DISCUSSING POC
[2020-09-26] MEDS ORDERED: TYLENOL325 M2 PO (11:47)
[2020-09-26] MEDS ORDERED: COZAAR50 MG PO (11:48)
[2020-09-26] MEDS ORDERED: NORVASC10 M1 PO (11:49)
[2020-09-26] MEDS ORDERED: LIDOCAINE52 TOP (11:53)
[2020-09-26] MEDS ORDERED: CLOTRIMAZOLE1 % VA (11:54)
[2020-09-26] MEDS ORDERED: MAGNESIUM200 M1 PO (11:55)
[2020-09-26] MEDS ORDERED: FISH OIL1200 M1 PO (11:56)
[2020-09-26] MEDS ORDERED: COQ10300 MG PO (11:56)
[2020-09-26] MEDS ORDERED: VITAMIN D-31000 UNI1 PO (11:58)
[2020-09-26] MEDS ORDERED: VITAMIN E200 UNI2 PO (11:59)
[2020-09-26] MEDS ORDERED: VITAMIN C500 MG PO (12:00)
[2020-09-26] MEDS ORDERED: B-12250 MCG PO (12:00)
[2020-09-26] MEDS ORDERED: BENADRYL25 M1 PO (12:02)
--- NOTE | 2020-09-26 14:20 | NUR ---
PT LAYING IN BED. NO DISTRESS NOTED. NO NEEDS AT THIS TIME. CALL LIGHT WITHIN REACH.
[2020-09-26 14:49] VITALS: BP 141/78
--- NOTE | 2020-09-26 17:43 | NUR ---
PT EDUCATED ON NEED OF CT AND THE USE OF MECHANICAL LIFTING DEVICE TO ASSIST WITH TRANSFER. PT REFUSING AT THIS TIME. PER PT "PHYSICAL THERAPY IS TO COME IN THE MORNING TO GET ME UP AND STAND AND PIVOT, SO I WANT TO DO TOMORROW MORNING". CALL LIGHT WITHIN REACH.
--- NOTE | 2020-09-26 18:30 | NUR ---
PT SITTING ON THE SIDE OF THE BED REQUESTING TO HAVE DRESSING TO LLE BE REMOVED DUE TO DISCOMFORT AND "COLDNESS IN TOES". TOES WARM TO THE TOUCH. DRESSING REMOVED. PT REQUESTING TO CONTINUE TO SIT ON THE SIDE OF THE BED. CALL LIGHT WITHIN REACH.
[2020-09-26 19:00] VITALS: BP 145/73
--- NOTE | 2020-09-26 19:55 | NUR ---
RADIOLOGY CALLED TO ASK IF PT WAS AVAILABLE TO COME DOWN FOR CT SCAN. I INFORMED THE PT THAT THEY WERE READY FOR HIM AND HE REFUSED TO GO DOWN FOR CT SCAN. PT'S DRESSING IS OFF OF HIS LLE, REPORTED BY DAY NURSE. I ASKED IF HE WAS READY TO HAVE IT RE-WRAPPED, HE REFUSED STATING THAT HE THINKS IT WILL SWELL SOME MORE, ATTEMPTS WERE MADE TO EDUCATE HIM ON THE PURPOSE OF COMPRESSION WRAPS AND THE AFFECT OF THOSE ON EDEMA, HE STATED THAT HE KNOWS AND STILL DID NOT WANT IT WRAPPED AT THIS TIME. PT C/O BEING COLD, TEMP ASSESSED TO BE WNL, ADDITIONAL BLANKETS PROVIDED FOR COMFORT. PT ALSO REFUSED TO ELEVATE LEFT FOOT AT THIS TIME, STATING "NO, I AM COMFORTABLE." CALL LIGHT IS IN PT HAND AND I DID ENCOURAGE HIM TO CALL ME IF HE NEEDS ANY ASSISTANCE AT ALL, HE VERBALIZED AGREEMENT.
--- NOTE | 2020-09-26 21:45 | NUR ---
PT MEDICATED ORDERS PROVIDE. OXYGEN IS OFF, I REMINDED THE PT ABOUT HIS OXYGEN, HE REFUSED TO PLACE IT BACK ON STATING THAT IT IS BOTHERING HIS NOSE. HUMIDIFICATION IS ALREADY ON OXYGEN, I OFFERED THE MOISTURIZER/LUBRICANT FOR HIS NOSE FOR COMFORT/DRYNESS, HE REFUSED THIS. LUNG SOUNDS HAVE MILD WHEEZE SOUNDS, IVF RUNNING KVO AT 20.
--- NOTE | 2020-09-26 22:25 | NUR ---
PT C/O FEELING CONGESTED, DENIES SOB, BUT STATES "I NEED SOMETHING FOR CONGESTION." PHYSICIAN NOTIFIED AND NEW ORDERS RECEIVED.
[2020-09-26 23:20] VITALS: BP 117/60
--- NOTE | 2020-09-26 23:43 | NUR ---
PT MEDICATED WITH IV LASIX AT THIS TIME. EXTRA URINAL PROVIDED ALSO AT THIS TIME. I ASKED TO WRAP HIS LEFT LEG, REFUSED, I OFFERED TO ASSIST HIM IN ELEVATING THEM AGAIN WITH PILLOWS/REFUSED. PILLOWS LEFT AVAILABLE W/IN REACH. HE STATED HE WOULD CALL ME IF HE NEEDED ANYTHING ELSE, I VERBALIZED UNDERSTANDING AND CONFIRMED CALL LIGHT W/IN REACH.
--- NOTE | 2020-09-27 02:00 | NUR ---
IV PUMPT SOUNDED, PT IS AWAKE WATCHING TV, BUT REPORTS THAT HE IS GETTING TIRED AND GOING TO TRY AGAIN TO GO TO SLEEP. URINALS EMPTIED OF 900CC OF CLEAR YELLOW URINE AT THIS TIME.
[2020-09-27 04:00] VITALS: BP 128/63
--- NOTE | 2020-09-27 04:13 | NUR ---
PT SLEEPING, NO S/O DISTRESS NOTED. CALL LIGHT AT SIDE.
--- NOTE | 2020-09-27 05:37 | NUR ---
PT SLEEPING AT THIS TIME. AWOKE TO MY ENTERING ROOM AND PROMPTLY RETURNED TO SLEEP, DENIES ANY NEEDS AT THIS TIME. REFUSED WRAP TO LLE AT THIS TIME, BUT HE DID ALLOW ME TO CHANGE DRAINAGE PAD, LARGE AMOUNT OF DRAINAGE OBSERVED TO PAD. ANTIBIOTIC THERAPY ADMINISTERED AT THIS TIME.
[2020-09-27 05:57] LABS: HEMATOCRIT 35.7 % (39.0-50.0); HEMOGLOBIN 11.1 g/dl (14.0-18.0); MEAN CORPUSCULAR HGB 26.4 pG CALC (26.0-32.0); MEAN CORPUSCULAR HGB CONC 31.1 g/dL CAL (32.0-36.0); RED BLOOD COUNT 4.2 mill/uL (4.70-6.10); RED CELL DISTRI WIDTH 16.7 % (11.5-15.5)
[2020-09-27 06:19] LABS: ANION GAP 10 (6-22 (CALC)); BUN 15 mg/dL (8-23); BUN/CREATININE RATIO 16 (12-20 (CALC)); CARBON DIOXIDE 26 mmol/l (22-30); CHLORIDE 100 mmol/l (95-108); GFR > 60 ML/MIN (>=60 (CALC)); GFR FOR AFR.AMER. > 60 ML/MIN (>=60 (CALC)); POTASSIUM 3.8 mmol/l (3.5-5.1); SODIUM 132 mmol/l (137-146)
[2020-09-27 07:45] VITALS: BP 150/66
--- NOTE | 2020-09-27 07:45 | NUR ---
ASSESSMENT IS COMPLETED: IV SITE IS FREE FROM REDNESS OR EDEMA. HR IS REG, PULSES ARE STRONG X4, ABD IS SOFT WITH ACTIVE BS. BREATH SOUNDS ARE WHEEZING AND DIMINISHED. O2 @ 3LITERS WITH NC. DRESSING ON R LEG IS CDI. LEFT LEG HAS NO DRESSING AT THIS TIME. BLISTER HAS POPPED FRESH SKIN IS VISIBLE. UPPER CALF IS RED AND WARM TO THE TOUCH. PER PT "FEELS A LITTLE BETTER" SOME BLISTERS ON THE FOOT IS INTACT. SOME DRAINAGE NOTED. ENCOURAGED PT TO HAVE THE DRESSING CHANGED IN AGREEANCE.
--- NOTE | 2020-09-27 09:00 | NUR ---
DRESSING CHANGED ON THE R LEG WITH ALGINATE AND WRAPPED WITH KERLIX AND JE WRAP. SOME BLEEDING NOTED ON THE MID CALF. RENEWED DRESSING ON LEFT LEG. WITH KERLIX AND JE WRAP. PT TOLERATED WELL.
--- NOTE | 2020-09-27 12:00 | NUR ---
PT IS RELAXING IN BED WITH NO DISTRESS NOTED. IV SITE IS FREE FROM REDNESS OR EDEMA.
[2020-09-27 14:41] VITALS: BP 125/59
--- NOTE | 2020-09-27 17:13 | NUR ---
Patient did B LE AROM exercises in seated position doing hip flexion, hip adduction, hip abduction, hamstring curls, knee extension, gluteal squeezes, and ankle ROM exercises for 10 reps x 2 sets with min A x 1 with occasional verbal and tactile cuing to help decrease fall risks. Patient did log rolling bed mobility and sit to stand push off technique with min A x 1 for 2 to 3 reps to help decrease trick movements and fall risks (transferred from bed to powewr wheelchair and back with minimal A to CGA x 1).
--- NOTE | 2020-09-27 17:22 | NUR ---
CAREGIVER CALLED AND WANTED TO COME AND SEE PT. EXPLAINED THAT SHE WAS HERE WITH PHYSICAL THERAPY THIS AM. IF ONLY HERE FOR 30MINUTES THEN CAN COME UP FOR 30 MINUTES DUE TO HOSPITAL RULES.
[2020-09-27 19:00] VITALS: BP 128/65
--- NOTE | 2020-09-27 21:25 | NUR ---
PT IS SLEEPING, DID NOT AWAKE TO MY ENTERING ROOM.
[2020-09-28 03:39] VITALS: BP 127/64
--- NOTE | 2020-09-28 04:41 | NUR ---
PT SLEEPING, HAD HIS OXYGEN OFF REPORTED BY DRILL PRESS OPERATOR FOR METAL'S OXYGEN SAT 90% AND REFUSED TO DRILL PRESS OPERATOR FOR METAL TO REPLACE NC. I ENTERED THE ROOM PT AWOKE AGAIN TO MY ENTERING HE PLACED OXYGEN BACK ON AT THIS TIME.
[2020-09-28 06:16] LABS: HEMATOCRIT 35.1 % (39.0-50.0); HEMOGLOBIN 10.8 g/dl (14.0-18.0); MEAN CELL VOLUME 86.5 fL CALC (80.0-100.0); MEAN CORPUSCULAR HGB 26.6 pG CALC (26.0-32.0); MEAN CORPUSCULAR HGB CONC 30.8 g/dL CAL (32.0-36.0); RED BLOOD COUNT 4.06 mill/uL (4.70-6.10); RED CELL DISTRI WIDTH 16.5 % (11.5-15.5)
--- NOTE | 2020-09-28 06:16 | NUR ---
PT MEDICATED ORDERS PROVIDE. PT REPORTS FEELING "MUCH BETTER" THIS MORNING. FEET WRAPPED X2 AND ELEVATED ON PILLOWS. LIGHTS AND TV ARE ON. DENIES ANY NEEDS OR DISTRESSES AT THIS TIME.
[2020-09-28 06:25] LABS: ANION GAP 11 (6-22 (CALC)); BUN 13 mg/dL (8-23); BUN/CREATININE RATIO 15 (12-20 (CALC)); CARBON DIOXIDE 28 mmol/l (22-30); CHLORIDE 98 mmol/l (95-108); CREATININE 0.9 mg/dL (0.7-1.3); GFR > 60 ML/MIN (>=60 (CALC)); GFR FOR AFR.AMER. > 60 ML/MIN (>=60 (CALC)); MAGNESIUM 1.7 mg/dL (1.6-2.3); POTASSIUM 3.9 mmol/l (3.5-5.1); SODIUM 134 mmol/l (137-146)
[2020-09-28 07:40] VITALS: BP 132/70
--- NOTE | 2020-09-28 07:40 | NUR ---
ASSESSMENT IS COMPLETED: IV SITE IS FREE FROM REDNESS OR EDEMA. HR IS REG,PULSES ARE STRONG X4, ABD IS SOFT WITH ACTIVE BS. BREATH SOUNSD ARE CLEAR,BILATERALLY. DRESSING ON BILAT LEGS ARE CDI. LESS RED AND HEAT ON THE LEFT LEG. CONTINUE TO OSBERVE AND MONITOR.
--- NOTE | 2020-09-28 10:00 | NUR ---
DR ALAMO IN TO VISIT WITH PT.
--- NOTE | 2020-09-28 11:41 | NUR ---
SPOKE WITH [facility] RE: TRANSPORTATION TO HAVE CT SCAN AT [facility]. BARIATRIC STRETCHER IS NOT IN SERVICE AT THIS TIME. WILL CALL WITHIN 1 HOUR TO INFORM OF WAIT TIME.
--- NOTE | 2020-09-28 12:00 | NUR ---
pt is relaxing , iv site is free from redness or edema. lasix is working well.
--- NOTE | 2020-09-28 12:18 | NUR ---
INFORMED [facility] OF CANCELING THE CT SCAN ON THIS PT.
--- NOTE | 2020-09-28 12:19 | NUR ---
SPOKE WITH DR ANDINO RE; CT SCAN NOT NEEDING ONE AT THIS TIME. INFORMED [facility] [employer]. PT IS WILLING TO DO THIS OUTPT.
--- NOTE | 2020-09-28 12:45 | NUR ---
Patient did B LE AROM exercises in supine position doing SLR, hip and knee flexion and extension, hip adduction, hip abduction, hip external and internal rotation, and ankle AROM for 10 reps x 3 sets with occasional verbal and tactile cuing to help improve efficiency participating with increased functional weight bearing ADLs. Patient did log rolling bed mobility ADLs and sit to stand push off transfers with Mod A x 1 (moving a little sluggish today) for 2 to 3 reps with occasional verbal and tactile cuing to help decrease fall risks.
--- NOTE | 2020-09-28 13:20 | NUR ---
REPORT RECEIVED FROM AIXA (YOUTH PASTOR), PT ALERT AND ORIENTED, VERY ANXIOUS AT THIS TIME REPORTING HE MAY HAVE TO LEAVE AMA HIS PERSONAL BANK ACCOUNT HAS BEEN FRAUDENTLY COMPROMISED BUT HE IS ADDRESSING THE PROBLEM VIA PHONE HOPING IT CAN BE RESOLVED WITHOUT HIS HAVING TO LEAVE URGENTLY. NO C/O DISCOMFORT AT THIS TIME, CALL YAO IN REACH AND BED LOCKED IN LOWEST POSITION.
[2020-09-28 16:27] VITALS: BP 127/58
--- NOTE | 2020-09-28 16:33 | NUR ---
PT JUST DECIDED HE HAS TO LEAVE NOW TO ADDRESS PERSONAL PROBLEMS AT BANK, INFORMED/EDUCATED ON LEAVING AMA AND STATED UNDERSTANDING REITERATING HE MUST TEND TO HIS CURRENT BANK ACCOUNT SITUATION NOW SOME UNAUTHORISED PERSON GAINED ACCESS TO HIS ACCOUNT. EARL, INDEPENDENT LIVING INSTRUCTOR INFORMED AND DR. ALAMO NOTIFIED VIA TEXT MESSAGE BUT HAS NOT YET RESPONDED.
--- NOTE | 2020-09-28 17:26 | NUR ---
MD DR. ALAMO NOTIFIED VIA PHONE, SAID HE DOES NOT RECOMMENT THAT THE PT LEAVE AMA, WILL SEND ORDER FOR ANTIBIOTIC TO PHARMACY.
--- NOTE | 2020-09-28 17:52 | NUR ---
Patient decides to leave AMA. Multiple attempts made to ecourage patient to remain here for continued treatment. Explained to patient all risks of leaving against medical advice including . Pt verbalized understanding of all risks. Pt also encouraged to return to [facility] at any time, especially if symptoms continue or become worse. Pt verbalized understanding.
--- NOTE | 2020-09-28 20:06 | NUR ---
PT HAD TO LEAVE AMA TO ADDRESS PROBLEMS AT BANK, NOTIFIED AND DID NOT RECOMMEND LEAVING AMA BUT DUE TO CIRCUMSTANCES ORDERED PRESCRIPTION FROM [facility]. SPOUSE CALLED @ [facility] [address] [facility] RECEIVED NO ORDER, NURSE CALLED [facility] WHO FURTHER CONFIRMED THEY DID NOT RECEIVE THE ORDER, NOTIFIED AND ASKED NURSE TO CALL IN ORDERED PRESCRIPTION. KIRK AT PHARMACY INFORMED ME THAT MED WILL NOT BE AVAILABLE TILL NEXT THURSDAY. NOTIFIED AND GAVE ORDER FOR NEW PRESCRIPTIONS OF OMNICEF 300MG BID X 14 DAYS AND DOXYCYCLINE 100MG TAB BID X 14 DAYS, MEDS CALLED IN TO [facility] WHICH VERIFIED THOSE MEDS WERE AVAILABLE, SPOUSE OF PT NOTIFIED.
== END 2020-09-28 17:49 | disposition left against medical advice (07) | DRG 872 ==
LOC: ED 11:36 → ED-I 17:05 → ED 17:23 → MS2 17:24
PROVIDERS: Family Medicine; Nurse Practitioner; Nurse Practitioner Family; ADMIT Internal Medicine; ATTEND Internal Medicine
DX: A41.9 Sepsis, unspecified organism (principal); I96 Gangrene, not elsewhere classified; L03.116 Cellulitis of left lower limb; E87.1 Hypo-osmolality and hyponatremia; I87.311 Chronic venous hypertension (idiopathic) with ulcer of right lower extremity; L97.919 Non-pressure chronic ulcer of unspecified part of right lower leg with unspecified severity; Z68.42 Body mass index [BMI] 45.0-49.9, adult; L03.115 Cellulitis of right lower limb; N17.9 Acute kidney failure, unspecified; I95.9 Hypotension, unspecified; R65.20 Severe sepsis without septic shock; I10 Essential (primary) hypertension; I89.0 Lymphedema, not elsewhere classified; G62.9 Polyneuropathy, unspecified; E66.01 Morbid (severe) obesity due to excess calories; D64.9 Anemia, unspecified; E88.09 Other disorders of plasma-protein metabolism, not elsewhere classified; M48.00 Spinal stenosis, site unspecified; B95.4 Other streptococcus as the cause of diseases classified elsewhere; B96.89 Other specified bacterial agents as the cause of diseases classified elsewhere; Z88.1 Allergy status to other antibiotic agents; Z86.711 Personal history of pulmonary embolism; Z86.718 Personal history of other venous thrombosis and embolism; Z95.828 Presence of other vascular implants and grafts; Z20.822 Contact with and (suspected) exposure to COVID-19
CPT/HCPCS: J0692; J2020; Q3014

== ENCOUNTER 2020-11-11 16:35 | Emergency (ER) | payer MEDICARE, OTHER ==
[~2020-11-11] VITALS: Ht 188 cm; Wt 157.7 kg
[~2020-11-11 16:35] MED LIST changes: +B-12250 MCG PO; +BENADRYL25 M1 PO; +CLOTRIMAZOLE1 % VA; +COQ10300 MG PO; +FISH OIL1200 M1 PO; +LIDOCAINE52 TOP; +MAGNESIUM200 M1 PO; +NORVASC10 M1 PO; +VITAMIN C500 MG PO; +VITAMIN D-31000 UNI1 PO; +VITAMIN E200 UNI2 PO
[2020-11-11] MEDS ORDERED: BACTRIM DS1 TAB PO (16:54)
[2020-11-11 17:26] LABS: HEMATOCRIT 39.4 % (39.0-50.0); HEMOGLOBIN 12.1 g/dl (14.0-18.0); IMMATURE GRANULOCYTES 0.4 % (0.0-5.0); MEAN CELL VOLUME 88.7 fL CALC (80.0-100.0); MEAN CORPUSCULAR HGB 27.3 pG CALC (26.0-32.0); MEAN CORPUSCULAR HGB CONC 30.7 g/dL CAL (32.0-36.0); NEUT# 3.48 thou/uL (1.82-7.42); RED BLOOD COUNT 4.44 mill/uL (4.70-6.10); RED CELL DISTRI WIDTH 18.2 % (11.5-15.5)
[2020-11-11 17:36] LABS: ALBUMIN 3.8 g/dL (3.2-5.0); ALKALINE PHOSPHATASE 71 u/l (38-126); ANION GAP 12 (6-22 (CALC)); BILIRUBIN, TOTAL 0.5 mg/dL (0.0-1.4); BUN 16 mg/dL (8-23); BUN/CREATININE RATIO 16 (12-20 (CALC)); CARBON DIOXIDE 28 mmol/l (22-30); CHLORIDE 98 mmol/l (95-108); CREATININE 1.1 mg/dL (0.7-1.3); GFR > 60 ML/MIN (>=60 (CALC)); GFR FOR AFR.AMER. > 60 ML/MIN (>=60 (CALC)); POTASSIUM 3.8 mmol/l (3.5-5.1); SGOT/AST 26 u/l (19-48); SODIUM 134 mmol/l (137-146); TOTAL PROTEIN 8.5 g/dL (6.3-8.2)
[2020-11-11] MEDS ORDERED: DOXYCYCL HYC100 MG PO (17:55)
[2020-11-11 18:12] VITALS: BP 142/59
== END 2020-11-11 18:50 | disposition home or self-care (01) ==
LOC: ED 16:35
DX: L03.115 Cellulitis of right lower limb (principal); L97.919 Non-pressure chronic ulcer of unspecified part of right lower leg with unspecified severity; I10 Essential (primary) hypertension; I87.2 Venous insufficiency (chronic) (peripheral); E66.01 Morbid (severe) obesity due to excess calories; M48.00 Spinal stenosis, site unspecified; B95.62 Methicillin resistant Staphylococcus aureus infection as the cause of diseases classified elsewhere; Z95.828 Presence of other vascular implants and grafts; Z86.711 Personal history of pulmonary embolism

== ENCOUNTER 2021-06-07 10:05 | Emergency (ER) | payer MEDICARE, OTHER ==
[~2021-06-07] VITALS: Ht 188 cm; Wt 147.0 kg
[~2021-06-07 10:05] MED LIST changes: +DOXYCYCL HYC100 MG PO
[2021-06-07 10:50] LABS: HEMATOCRIT 42.2 % (39.0-50.0); HEMOGLOBIN 12.7 g/dl (14.0-18.0); IMMATURE GRANULOCYTES 0.3 % (0.0-5.0); MEAN CELL VOLUME 90.2 fL CALC (80.0-100.0); MEAN CORPUSCULAR HGB 27.1 pG CALC (26.0-32.0); MEAN CORPUSCULAR HGB CONC 30.1 g/dL CAL (32.0-36.0); NEUT# 6.21 thou/uL (1.82-7.42); RED BLOOD COUNT 4.68 mill/uL (4.70-6.10); RED CELL DISTRI WIDTH 17.5 % (11.5-15.5)
[2021-06-07 11:04] LABS: ALBUMIN 3.7 g/dL (3.2-5.0); BILIRUBIN, TOTAL 0.5 mg/dL (0.0-1.4); CREATININE 1.5 mg/dL (0.7-1.3); TOTAL PROTEIN 8.5 g/dL (6.3-8.2)
[2021-06-07 11:05] LABS: POTASSIUM 4.7 mmol/l (3.5-5.1)
[2021-06-07] MEDS ORDERED: TRAMADOL HYDROC50 M1 PO (12:41)
[2021-06-07 13:05] VITALS: BP 135/66
[2021-06-10] MEDS ORDERED: BACTRIM DS1 TAB PO (15:25)
== END 2021-06-07 13:05 | disposition left against medical advice (07) ==
LOC: ED 10:05
PROVIDERS: Family Medicine
DX: L03.115 Cellulitis of right lower limb (principal); I10 Essential (primary) hypertension; I73.9 Peripheral vascular disease, unspecified; E66.01 Morbid (severe) obesity due to excess calories; Z68.41 Body mass index [BMI] 40.0-44.9, adult; Z86.711 Personal history of pulmonary embolism; Z95.828 Presence of other vascular implants and grafts; Z88.1 Allergy status to other antibiotic agents; Z91.19 Patient's noncompliance with other medical treatment and regimen; L97.212 Non-pressure chronic ulcer of right calf with fat layer exposed; L03.116 Cellulitis of left lower limb; B96.4 Proteus (mirabilis) (morganii) as the cause of diseases classified elsewhere; E11.01 Type 2 diabetes mellitus with hyperosmolarity with coma; G82.20 Paraplegia, unspecified; I70.203 Unspecified atherosclerosis of native arteries of extremities, bilateral legs; I87.2 Venous insufficiency (chronic) (peripheral); I89.0 Lymphedema, not elsewhere classified; L97.222 Non-pressure chronic ulcer of left calf with fat layer exposed
CPT/HCPCS: J2020

== ENCOUNTER 2022-04-01 17:24 | Emergency (ER) | payer MEDICARE, OTHER ==
[2022-04-01] VITALS (8 sets, daily range): BP systolic 79–111; BP diastolic 43–59
[~2022-04-01] VITALS: Ht 188 cm; Wt 163.6 kg
[~2022-04-01 17:24] MED LIST changes: +TRAMADOL HYDROC50 M1 PO
[2022-04-01 18:32] LABS: IMMATURE GRANULOCYTES 0.6 % (0.0-5.0); MEAN CELL VOLUME 86.4 fL CALC (80.0-100.0); MEAN CORPUSCULAR HGB 26.4 pG CALC (26.0-32.0); MEAN CORPUSCULAR HGB CONC 30.5 g/dL CAL (32.0-36.0); NEUT# 7.44 thou/uL (1.82-7.42); RED BLOOD COUNT 3.45 mill/uL (4.70-6.10); RED CELL DISTRI WIDTH 19.2 % (11.5-15.5)
[2022-04-01 18:35] LABS: HEMATOCRIT 29.8 % (39.0-50.0); HEMOGLOBIN 9.1 g/dl (14.0-18.0)
[2022-04-01 18:46] LABS: ALKALINE PHOSPHATASE 82 u/l (38-126); BUN 28 mg/dL (8-23); BUN/CREATININE RATIO 27 (12-20 (CALC)); CARBON DIOXIDE 27 mmol/l (22-30); CHLORIDE 108 mmol/l (95-108); GFR FOR AFR.AMER. > 60 ML/MIN (>=60 (CALC)); GFR OTHER RACES > 60 ML/MIN (>=60 (CALC)); INTERNATIONAL NORMALIZED RATIO 1.2 RATIO (0.7-1.3); PROTHROMBIN TIME 11.5 SECONDS (9.0-12.5); SGOT/AST 32 u/l (19-48); SODIUM 143 mmol/l (137-146)
[2022-04-01 18:48] LABS: ALBUMIN 2.5 g/dL (3.2-5.0); ANION GAP 13 (6-22 (CALC)); BILIRUBIN, TOTAL 0.2 mg/dL (0.0-1.4); POTASSIUM 5.2 mmol/l (3.5-5.1); TOTAL PROTEIN 6.3 g/dL (6.3-8.2)
== END 2022-04-01 20:55 | disposition short-term general hospital (02) ==
LOC: ED 17:24
PROVIDERS: Emergency Medicine
DX: S30.22XA Contusion of scrotum and testes, initial encounter (principal); S31.33XA Puncture wound without foreign body of scrotum and testes, initial encounter; I10 Essential (primary) hypertension; E66.01 Morbid (severe) obesity due to excess calories; W07.XXXA Fall from chair, initial encounter; Z86.711 Personal history of pulmonary embolism; Z95.828 Presence of other vascular implants and grafts

== ENCOUNTER 2022-05-09 13:09 | Emergency (ER) | payer MEDICARE, MEDICAID ==
[~2022-05-09] VITALS: Ht 188 cm; Wt 143.0 kg
[2022-05-09 17:41] VITALS: BP 136/74
== END 2022-05-09 17:49 | disposition home or self-care (01) ==
LOC: ED 13:09
DX: R06.02 Shortness of breath (principal); I10 Essential (primary) hypertension; I87.2 Venous insufficiency (chronic) (peripheral); E66.01 Morbid (severe) obesity due to excess calories; Z86.711 Personal history of pulmonary embolism; Z95.828 Presence of other vascular implants and grafts

== ENCOUNTER 2022-06-20 11:25 | Emergency (ER) | payer MEDICARE, MEDICAID ==
[~2022-06-20] VITALS: Ht 188 cm; Wt 181.5 kg
[2022-06-20] VITALS (36 sets, daily range): BP systolic 63–140; BP diastolic 35–116
[2022-06-20 13:40] LABS: HEMATOCRIT 33.5 % (39.0-50.0); HEMOGLOBIN 9.7 g/dl (14.0-18.0); IMMATURE GRANULOCYTES 0.3 % (0.0-5.0); LYMPH% 3.5 % (15-41); MEAN CORPUSCULAR HGB 22.6 pG CALC (26.0-32.0); MONO% 7.1 % (2-13); NEUT# 14.13 thou/uL (1.82-7.42); RED BLOOD COUNT 4.29 mill/uL (4.70-6.10)
[2022-06-20 13:51] LABS: ALBUMIN 2.9 g/dL (3.2-5.0); CREATININE 1.8 mg/dL (0.7-1.3); POTASSIUM 4.2 mmol/l (3.5-5.1)
[2022-06-20 14:01] LABS: MEAN CELL VOLUME 78.1 fL CALC (80.0-100.0)
[2022-06-20 14:02] LABS: NEUT% 89.1 % (42-76)
[2022-06-20 14:04] LABS: BILIRUBIN, TOTAL 0.6 mg/dL (0.2-1.3)
[2022-06-20] MEDS ORDERED: DULOXETINE HCL60 MG (14:44)
[2022-06-20] MEDS ORDERED: LOSARTAN POTAS100 MG PO (14:44)
[2022-06-20] MEDS ORDERED: ATENOLOL50 MG PO (14:44)
[2022-06-20] MEDS ORDERED: ALLOPURINOL100 MG PO (14:45)
[2022-06-20 15:40] LABS: URINE BLOOD DIPSTICK NEGATIVE (NEGATIVE); URINE GLUCOSE - DIPSTICK NEGATIVE (NEGATIVE); URINE KETONE TRACE mg/dL (NEGATIVE); URINE LEUK ESTERASE TRACE (NEGATIVE); URINE PROTEIN - DIPSTICK TRACE mg/dL (NEG-TRACE); URINE SPECIFIC GRAVITY 1.025
[2022-06-20 15:42] LABS: URINE BILIRUBIN - DIPSTICK SMALL (NEGATIVE)
[2022-06-20 15:43] LABS: URINE COLOR DK. YELLOW; URINE NITRITE - DIPSTICK NEGATIVE (Negative)
[2022-06-21] VITALS (47 sets, daily range): BP systolic 78–113; BP diastolic 30–72
[2022-06-21 08:20] LABS: EOS% 0.2 % (0-8); HEMATOCRIT 30.8 % (39.0-50.0); HEMOGLOBIN 8.9 g/dl (14.0-18.0); LYMPH% 6.3 % (15-41); MEAN CORPUSCULAR HGB 22.3 pG CALC (26.0-32.0); MEAN CORPUSCULAR HGB CONC 28.9 g/dL CAL (32.0-36.0); MONO% 6.2 % (2-13); NEUT# 10.59 thou/uL (1.82-7.42); NEUT% 86.3 % (42-76); RED CELL DISTRI WIDTH 18.9 % (11.5-15.5)
[2022-06-21 08:29] LABS: ALBUMIN 2.7 g/dL (3.2-5.0); BILIRUBIN, TOTAL 0.4 mg/dL (0.2-1.3); CREATININE 1.4 mg/dL (0.7-1.3); POTASSIUM 3.6 mmol/l (3.5-5.1); TOTAL PROTEIN 6.7 g/dL (6.3-8.2)
[2022-06-21] MEDS ORDERED: LEVAQUIN750 M1 PO (13:41)
== END 2022-06-21 14:19 | disposition left against medical advice (07) ==
LOC: ED 11:25
PROVIDERS: Family Medicine
PROC: 05HM33Z Insertion of Infusion Device into Right Internal Jugular Vein, Percutaneous Approach (ICD-10-PCS; principal; 2022-06-20)
DX: A41.9 Sepsis, unspecified organism (principal); R65.20 Severe sepsis without septic shock; L89.153 Pressure ulcer of sacral region, stage 3; L03.312 Cellulitis of back [any part except buttock and flank]; I10 Essential (primary) hypertension; I48.91 Unspecified atrial fibrillation; E66.01 Morbid (severe) obesity due to excess calories; Z53.29 Procedure and treatment not carried out because of patient's decision for other reasons; Z86.711 Personal history of pulmonary embolism; Z20.822 Contact with and (suspected) exposure to COVID-19
CPT/HCPCS: J0878; Q9967

== ENCOUNTER 2022-06-21 18:27 | Emergency (ER) | payer MEDICARE, MEDICAID ==
[~2022-06-21] VITALS: Ht 188 cm; Wt 170.0 kg
[2022-06-21] VITALS (23 sets, daily range): BP systolic 67–141; BP diastolic 30–96
[~2022-06-21 18:27] MED LIST changes: +ALLOPURINOL100 MG PO; +ATENOLOL50 MG PO; +DULOXETINE HCL60 MG; +LOSARTAN POTAS100 MG PO
[2022-06-21 18:59] LABS: BASO% 0.1 % (0-3); EOS% 0.6 % (0-8); HEMATOCRIT 34.2 % (39.0-50.0); HEMOGLOBIN 9.7 g/dl (14.0-18.0); IMMATURE GRANULOCYTES 1.9 % (0.0-5.0); LYMPH% 8.5 % (15-41); MEAN CELL VOLUME 77.4 fL CALC (80.0-100.0); MEAN CORPUSCULAR HGB 21.9 pG CALC (26.0-32.0); MEAN CORPUSCULAR HGB CONC 28.4 g/dL CAL (32.0-36.0); MONO% 5.5 % (2-13); NEUT# 10.28 thou/uL (1.82-7.42); NEUT% 83.4 % (42-76); RED BLOOD COUNT 4.42 mill/uL (4.70-6.10)
[2022-06-21 19:09] LABS: ALBUMIN 3.1 g/dL (3.2-5.0); ALKALINE PHOSPHATASE 87 u/l (38-126); ANION GAP 14 (6-22 (CALC)); BILIRUBIN, TOTAL 0.5 mg/dL (0.2-1.3); BUN 41 mg/dL (8-23); BUN/CREATININE RATIO 29 (12-20 (CALC)); CARBON DIOXIDE 17 mmol/l (22-30); CHLORIDE 108 mmol/l (95-108); CREATININE 1.4 mg/dL (0.7-1.3); GFR FOR AFR.AMER. 60 ML/MIN (>=60 (CALC)); GFR OTHER RACES 49 ML/MIN (>=60 (CALC)); POTASSIUM 3.6 mmol/l (3.5-5.1); SGOT/AST 40 u/l (19-48); SODIUM 136 mmol/l (137-146); TOTAL PROTEIN 7.7 g/dL (6.3-8.2)
[2022-06-22] VITALS (203 sets, daily range): BP systolic 80–140; BP diastolic 35–101
[2022-06-22 08:08] LABS: EOS% 0.1 % (0-8); HEMOGLOBIN 8.2 g/dl (14.0-18.0); IMMATURE GRANULOCYTES 0.9 % (0.0-5.0); LYMPH% 5.1 % (15-41); MEAN CELL VOLUME 77.3 fL CALC (80.0-100.0); MEAN CORPUSCULAR HGB CONC 29.7 g/dL CAL (32.0-36.0); MONO% 5.9 % (2-13); NEUT# 12.27 thou/uL (1.82-7.42); RED BLOOD COUNT 3.57 mill/uL (4.70-6.10); RED CELL DISTRI WIDTH 18.8 % (11.5-15.5)
[2022-06-22 08:11] LABS: HEMATOCRIT 27.6 % (39.0-50.0)
[2022-06-22 08:15] LABS: ALKALINE PHOSPHATASE 70 u/l (38-126); BILIRUBIN, TOTAL 0.3 mg/dL (0.2-1.3); BUN 34 mg/dL (8-23); BUN/CREATININE RATIO 33 (12-20 (CALC)); CHLORIDE 111 mmol/l (95-108); CREATININE 1.1 mg/dL (0.7-1.3); GFR FOR AFR.AMER. > 60 ML/MIN (>=60 (CALC)); GFR OTHER RACES > 60 ML/MIN (>=60 (CALC)); POTASSIUM 3.7 mmol/l (3.5-5.1); SGOT/AST 30 u/l (19-48); SODIUM 137 mmol/l (137-146); TOTAL PROTEIN 6.4 g/dL (6.3-8.2)
[2022-06-22 08:25] LABS: ALBUMIN 2.4 g/dL (3.2-5.0); ANION GAP 8 (6-22 (CALC)); CARBON DIOXIDE 22 mmol/l (22-30)
[2022-06-23] VITALS (27 sets, daily range): BP systolic 89–123; BP diastolic 54–76
[2022-06-23 07:32] LABS: BASO% 0.1 % (0-3); HEMOGLOBIN 7.7 g/dl (14.0-18.0); IMMATURE GRANULOCYTES 4.3 % (0.0-5.0); LYMPH% 11.7 % (15-41); MEAN CELL VOLUME 78.9 fL CALC (80.0-100.0); MEAN CORPUSCULAR HGB 22.5 pG CALC (26.0-32.0); MEAN CORPUSCULAR HGB CONC 28.5 g/dL CAL (32.0-36.0); MONO% 10.1 % (2-13); NEUT# 6.58 thou/uL (1.82-7.42); NEUT% 70.8 % (42-76); RED BLOOD COUNT 3.42 mill/uL (4.70-6.10); RED CELL DISTRI WIDTH 19.1 % (11.5-15.5)
[2022-06-23 07:45] LABS: ANION GAP 8 (6-22 (CALC)); BUN 25 mg/dL (8-23); BUN/CREATININE RATIO 24 (12-20 (CALC)); CARBON DIOXIDE 23 mmol/l (22-30); CHLORIDE 111 mmol/l (95-108); GFR FOR AFR.AMER. > 60 ML/MIN (>=60 (CALC)); GFR OTHER RACES > 60 ML/MIN (>=60 (CALC)); POTASSIUM 3.9 mmol/l (3.5-5.1); SODIUM 138 mmol/l (137-146)
== END 2022-06-23 14:55 ==
LOC: ED 18:27
PROVIDERS: Emergency Medicine; Family Medicine
DX: L03.312 Cellulitis of back [any part except buttock and flank] (principal); L89.153 Pressure ulcer of sacral region, stage 3; N50.89 Other specified disorders of the male genital organs; I48.91 Unspecified atrial fibrillation; I10 Essential (primary) hypertension; E66.01 Morbid (severe) obesity due to excess calories; Z86.711 Personal history of pulmonary embolism
CPT/HCPCS: J0878; J1650; S0164